=== PATIENT | female | born 1980 | race African-American/Black ===

== ENCOUNTER 2018-10-29 08:20 | Emergency (ER) | payer BC ==
[2018-10-29 09:22] LABS: ADD MAN DIFF? NO
[2018-10-29 09:28] LABS: WHITE BLOOD COUNT 4.7 10^3/ul (4.8-10.8)
[2018-10-29 09:28] LABS: ABNORMAL IP MESSAGE 1; BASOPHILS % 0.6 % (0.0-2.0); EOSINOPHILS # 0.2 10^3/ul (0.0-0.5); EOSINOPHILS % 5.1 % (0.0-7.0); HEMATOCRIT 27.2 % (37.0-47.0); HEMOGLOBIN 7.8 g/dl (12.0-16.0); LYMPHOCYTES # 1.6 10^3/ul (0.8-2.9); LYMPHOCYTES % 34.3 % (15.0-51.0); MEAN CORPUSCULAR HEMOGLOBIN 21.1 pg (29.0-33.0); MEAN CORPUSCULAR HGB CONC 28.7 g/dl (32.0-37.0); MEAN CORPUSCULAR VOLUME 73.5 fl (82.0-101.0); MEAN PLATELET VOLUME 9.2 fl (7.4-10.4); MONOCYTE # 0.3 10^3/ul (0.3-0.9); MONOCYTES % 6.4 % (0.0-11.0); NEUTROPHIL # 2.5 10^3/ul (1.6-7.5); NEUTROPHILS % 53.2 % (39.0-77.0); PLATELET COUNT 177 10^3/UL (140-415); RED CELL DISTRIBUTION WIDTH 19.6 % (11.5-14.5)
[2018-10-29 09:41] LABS: POSITIVE DIFF @See below
[2018-10-29 09:48] LABS: INR 0.95; PROTIME 12.8 Sec (11.9-14.9)
[2018-10-29 09:49] LABS: PARTIAL THROMBOPLASTIN TIME 31.7 Sec (23.0-35.0)
== END 2018-10-29 10:00 | disposition home or self-care (01) ==
LOC: E/R 08:20
DX: D50.0 Iron deficiency anemia secondary to blood loss (chronic) (principal); N92.0 Excessive and frequent menstruation with regular cycle; J45.909 Unspecified asthma, uncomplicated
CPT/HCPCS: 81025; 85025; 85610; 85730; 93005; 99284-25